=== PATIENT | male | born 1985 | race Caucasian/White ===

== ENCOUNTER 2023-08-13 13:59 | Emergency (ER) | payer OTHER ==
[~2023-08-13] VITALS: Ht 170.2 cm; Wt 74.8 kg
[2023-08-13 14:04] VITALS: BP 111/62; PULSE 56; RESP 16; TEMP 98; O2SAT 98
[2023-08-13] MEDS ORDERED: IBUP-2218 PO (14:23)
== END 2023-08-13 14:50 | disposition home or self-care (01) ==
LOC: MED 13:59
DX: G89.29 Other chronic pain (principal); M54.50 Low back pain, unspecified; M25.562 Pain in left knee; Z79.1 Long term (current) use of non-steroidal anti-inflammatories (NSAID)
CPT/HCPCS: 73560; 99283